=== PATIENT | male | born 1985 | race Caucasian/White ===

== ENCOUNTER 2019-06-25 06:33 | Emergency (ER) | payer OTHER ==
[2019-06-25] MEDS ORDERED: dexAMETHasone 10 MG/ML VIAL ONE (07:11)
[2019-06-25] MEDS ORDERED: KETOROLAC 30 MG/ML INJ ONE (07:12)
[2019-06-25] MEDS ORDERED: DIAZEPAM 5 MG TABLET ONE (07:12)
[2019-06-25] MEDS ORDERED: LIDOCAINE 5% PATCH TD ONE (08:15)
--- NOTE | 2019-06-25 08:40 | ER ---
Nurse's Notes [facility] Name: Viraj Burgess Age: 34 yrs Sex: Male : 1985 Arrival Date: 06/25/2019 Time: 06:35 Bed 14 Private MD: Diagnosis: Lumbago with sciatica, right side Presentation: 06/25 06:44 Presenting complaint: Patient states: he is having sciatic nerve pain which is in his bb back and radiates to his right calf pain is constant and currently is 10/10. Transition of care: patient was not received from another setting of care. Onset of symptoms was June 25, 2019. Risk Assessment: Do you want to hurt yourself or someone else? Patient reports no desire to harm self or others. Initial Sepsis Screen: Does the patient meet any 2 criteria? No. Patient's initial sepsis screen is negative. Does the patient have a suspected source of infection? No. Patient's initial sepsis screen is negative. Care prior to arrival: None. 06:44 Method Of Arrival: Ambulatory 06:44 Acuity: JOSE FRANCISCO 4 bb Triage Assessment: 06:57 General: Appears in no apparent distress. uncomfortable, Behavior is cooperative, bp appropriate for age, anxious. Pain: Complains of pain in right flank. EENT: No deficits noted. Neuro: No deficits noted. Cardiovascular: No deficits noted. Respiratory: No deficits noted. GI: No signs and/or symptoms were reported involving the gastrointestinal system. : No signs and/or symptoms were reported regarding the genitourinary system. Derm: No deficits noted. Musculoskeletal: Circulation, motion, and sensation intact. Range of motion: intact in all extremities. Historical: - Allergies: 06:46 Bees; bb 06:46 pediasol; bb - Home Meds: 06:46 None [Active]; bb - PMHx: 06:46 PTSD; bb - PSHx: 06:46 left shoulder; bb - Immunization history:: Adult Immunizations up to date. - Social history:: Smoking status: Patient uses tobacco products, smokes one pack cigarettes per day. Patient uses alcohol, occasionally. - Ebola Screening: : No symptoms or risks identified at this time. Screenin:00 Abuse screen: Denies threats or abuse. Denies injuries from another. Nutritional bp screening: No deficits noted. Tuberculosis screening: No symptoms or risk factors identified. Fall Risk None identified. Assessment: 06:58 General: SEE TRIAGE NOTE. Neuro: Level of Consciousness is awake, alert, obeys bp commands, Oriented to person, place, time, situation, Appropriate for age. 08:31 Reassessment: Patient and/or family updated on plan of care and expected duration. Pain bp level reassessed. Patient is alert, oriented x 3, equal unlabored respirations, skin warm/dry/pink. 09:08 Reassessment: PT D/C HOME AMBULATORY WITH FAMILY, DX WITH LUMBAGO. bp Vital Signs: 06:46 BP 136 / 98; Pulse 92; Resp 16 S; Temp 98.4(O); Pulse Ox 98% on R/A; Weight 100.7 kg bb (R); Height 6 ft. 3 in. (190.50 cm) (R); Pain 10/10; 07:51 BP 111 / 75; Pulse 80; Resp 17; Temp 98.1(O); Pulse Ox 97% on R/A; mh5 08:30 BP 106 / 92; Pulse 81; Resp 16; Pulse Ox 98% ; bp 09:07 BP 117 / 85; Pulse 78; Resp 16; Pulse Ox 99% ; bp 06:46 Body Mass Index 27.75 (100.70 kg, 190.50 cm) bb ED Course: 06:35 Patient arrived in ED. ds1 06:44 Topher Garcia NP is PHCP. pm1 06:44 Anup Mary MD is Attending Physician. pm1 06:45 Triage completed. bb 06:46 Arm band placed on Patient placed in an exam room, on a stretcher, on pulse oximetry. bb 06:57 Eric Lama, GRADY is Primary Nurse. bp 07:00 Patient has correct armband on for positive identification. Bed in low position. Call bp light in reach. Side rails up X2. Adult w/ patient. 09:08 No provider procedures requiring assistance completed. Patient did not have IV access bp during this emergency room visit. Administered Medications: 07:10 Drug: Decadron 10 mg Route: IM; Site: right gluteus; bp 08:29 Follow up: Response: No adverse reaction; Pain is decreased bp 07:10 Drug: TORadol 60 mg Route: IM; Site: right gluteus; bp 08:29 Follow up: Response: No adverse reaction; Pain is decreased bp 07:10 Drug: Valium 5 mg Route: PO; bp 08:29 Follow up: Response: No adverse reaction; Pain is decreased bp 08:29 Drug: Lidoderm 5 % (700 mg/patch) 1 patches Route: Topical; Site: affected area; bp Outcome: 08:39 Discharge ordered by . pm1 09:09 Discharged to home ambulatory, with family. bp 09:09 Condition: stable 09:09 Discharge instructions given to patient, Instructed on discharge instructions, follow up and referral plans. medication usage, Demonstrated understanding of instructions, follow-up care, medications, Prescriptions given X 4. 09:10 Patient left the ED. bp Signatures: Yuko Rm ds1 Aislinn De Leon, GRADY RN bb Topher Garcia NP QUALITY ENGINEER pm1 Jina Foster 5 Eric Lama RN RN bp
--- NOTE | 2019-06-25 08:40 | EDPHYS ---
Physician Documentation [facility] Name: Viraj Burgess Age: 34 yrs Sex: Male : 1985 Arrival Date: 06/25/2019 Time: 06:35 Bed 14 Private MD: ED Physician Anup Mary HPI: 06/25 07:03 This 34 yrs old Male presents to ER via Ambulatory with complaints of Back pm1 Pain. 07:03 The patient presents with pain that is chronic, with no known mechanism of injury, that pm1 is worse. The symptoms are located in the low back. Onset: The symptoms/episode began/occurred and became worse yesterday. The pain radiates to the right leg. Associated signs and symptoms: Pertinent negatives: abdominal pain, chest pain, constipation, dysuria, fever, headache, weakness, shortness of breath. The problem was sustained from unknown cause, history of sciatic nerve pain. Modifying factors: The patient symptoms are alleviated by nothing, the patient symptoms are aggravated by movement. Severity of symptoms: in the emergency department the symptoms are actually worse. The patient has experienced similar episodes in the past, chronically. The patient has not recently seen a physician. Historical: - Allergies: 06:46 Bees; bb 06:46 pediasol; bb - Home Meds: 06:46 None [Active]; bb - PMHx: 06:46 PTSD; bb - PSHx: 06:46 left shoulder; bb - Immunization history:: Adult Immunizations up to date. - Social history:: Smoking status: Patient uses tobacco products, smokes one pack cigarettes per day. Patient uses alcohol, occasionally. - Ebola Screening: : No symptoms or risks identified at this time. ROS: 07:03 Constitutional: Negative for fever, chills, and weight loss, Eyes: Negative for injury, pm1 pain, redness, and discharge, ENT: Negative for injury, pain, and discharge, Neck: Negative for injury, pain, and swelling, Cardiovascular: Negative for chest pain, palpitations, and edema, Respiratory: Negative for shortness of breath, cough, wheezing, and pleuritic chest pain, Abdomen/GI: Negative for abdominal pain, nausea, vomiting, diarrhea, and constipation. 07:03 : Negative for injury, bleeding, discharge, and swelling, MS/Extremity: Negative for injury and deformity, Skin: Negative for injury, rash, and discoloration, Neuro: Negative for headache, weakness, numbness, tingling, and seizure. 07:03 Back: Positive for of the right low back, Negative for pain with movement. Exam: 07:03 Constitutional: This is a well developed, well nourished patient who is awake, alert, pm1 and in no acute distress. Head/Face: Normocephalic, atraumatic. Neck: Trachea midline, no thyromegaly or masses palpated, and no cervical lymphadenopathy. Supple, full range of motion without nuchal rigidity, or vertebral point tenderness. No Meningismus. Chest/axilla: Normal chest wall appearance and motion. Nontender with no deformity. No lesions are appreciated. Cardiovascular: Regular rate and rhythm with a normal S1 and S2. No gallops, murmurs, or rubs. Normal PMI, no JVD. No pulse deficits. Respiratory: Lungs have equal breath sounds bilaterally, clear to auscultation and percussion. No rales, rhonchi or wheezes noted. No increased work of breathing, no retractions or nasal flaring. Abdomen/GI: Soft, non-tender, with normal bowel sounds. No distension or tympany. No guarding or rebound. No evidence of tenderness throughout. 07:03 Skin: Warm, dry with normal turgor. Normal color with no rashes, no lesions, and no evidence of cellulitis. MS/ Extremity: Pulses equal, no cyanosis. Neurovascular intact. Full, normal range of motion. 07:03 Back: pain, that is moderate, of the right low back, normal spinal alignment noted, negative for spinous process tenderness. 07:03 Neuro: Orientation: is normal, Motor: is normal, moves all fours, strength is 5/5 in all extremities. Vital Signs: 06:46 BP 136 / 98; Pulse 92; Resp 16 S; Temp 98.4(O); Pulse Ox 98% on R/A; Weight 100.7 kg bb (R); Height 6 ft. 3 in. (190.50 cm) (R); Pain 10/10; 07:51 BP 111 / 75; Pulse 80; Resp 17; Temp 98.1(O); Pulse Ox 97% on R/A; mh5 08:30 BP 106 / 92; Pulse 81; Resp 16; Pulse Ox 98% ; bp 09:07 BP 117 / 85; Pulse 78; Resp 16; Pulse Ox 99% ; bp 06:46 Body Mass Index 27.75 (100.70 kg, 190.50 cm) bb MDM: 06:46 Patient medically screened. pm1 08:01 ED course: Patient reports no improvement in pain. Does not want narcotics. Ordered pm1 Lidoderm patch. 08:37 Data reviewed: vital signs. Data interpreted: Pulse oximetry: on room air is 98 %. pm1 Interpretation: normal. Counseling: I had a detailed discussion with the patient and/or guardian regarding: the historical points, exam findings, and any diagnostic results supporting the discharge/admit diagnosis, the need for outpatient follow up, to return to the emergency department if symptoms worsen or persist or if there are any questions or concerns that arise at home. Administered Medications: 07:10 Drug: Decadron 10 mg Route: IM; Site: right gluteus; bp 08:29 Follow up: Response: No adverse reaction; Pain is decreased bp 07:10 Drug: TORadol 60 mg Route: IM; Site: right gluteus; bp 08:29 Follow up: Response: No adverse reaction; Pain is decreased bp 07:10 Drug: Valium 5 mg Route: PO; bp 08:29 Follow up: Response: No adverse reaction; Pain is decreased bp 08:29 Drug: Lidoderm 5 % (700 mg/patch) 1 patches Route: Topical; Site: affected area; bp Disposition: 22:46 Co-signature as Attending Physician, Anup Mary MD. rn Disposition: 06/25/19 08:39 Discharged to Home. Impression: Lumbago with sciatica, right side. - Condition is Stable. - Discharge Instructions: Back Pain, Adult, Sciatica. - Prescriptions for Naprosyn 500 mg Oral Tablet - take 1 tablet by ORAL route 2 times per day take with food; 30 tablet. Valium 2 mg Oral Tablet - take 1 tablet by ORAL route every 8 hours As needed; 20 tablet. Medrol (Wilber) 4 mg Oral Tablets, Dose Pack - take 1 tablet by ORAL route as directed - follow package instructions; 1 packet. Lidoderm 5 % Topical adhesive patch,medicated - apply 1 patch by TRANSDERMAL route once daily; 30 Transdermal Patch. - Medication Reconciliation Form, Thank You Letter, Antibiotic Education, Prescription Opioid Use form. - Follow up: Emergency Department; When: As needed; Reason: Worsening of condition. Follow up: Private Physician; When: 2 - 3 days; Reason: Recheck today's complaints, Continuance of care, Re-evaluation by your physician. - Problem is new. - Symptoms have improved. Signatures: Aislinn De Leon, RN RN bb Anup Mary MD MD rn Marinas, Patrick, DIRECTOR OF ACADEMIC DIRECTOR OF ACADEMIC pm1 Eric Lama RN RN bp Corrections: (The following items were deleted from the chart) 09:10 08:39 06/25/2019 08:39 Discharged to Home. Impression: Lumbago with sciatica, right bp side. Condition is Stable. Discharge Instructions: Back Pain, Adult, Sciatica. Prescriptions for Naprosyn 500 mg Oral Tablet - take 1 tablet by ORAL route 2 times per day take with food; 30 tablet, Valium 2 mg Oral Tablet - take 1 tablet by ORAL route every 8 hours As needed; 20 tablet, Medrol (Wilber) 4 mg Oral Tablets, Dose Pack - take 1 tablet by ORAL route as directed - follow package instructions; 1 packet. and Forms are Medication Reconciliation Form, Thank You Letter, Antibiotic Education, Prescription Opioid Use. Follow up: Emergency Department; When: As needed; Reason: Worsening of condition. Follow up: Private Physician; When: 2 - 3 days; Reason: Recheck today's complaints, Continuance of care, Re-evaluation by your physician. Problem is new. Symptoms have improved. pm1
[2019-06-25 09:19] VITALS: TEMP 98.1
[2019-06-25 09:21] VITALS: BP 117/85; O2SAT 99
== END 2019-06-25 09:10 | disposition home or self-care (01) ==
LOC: ER 06:33
DX: M54.41 Lumbago with sciatica, right side (principal); Z91.030 Bee allergy status; Z88.8 Allergy status to other drugs, medicaments and biological substances
CPT/HCPCS: 96372; 99283; J1100